=== PATIENT | female | born 1980 | race Two or more races ===

== ENCOUNTER → 2025-05-05 | Emergency (ER) | payer OTHER ==
[~2025-05-05] VITALS: Ht 160 cm; Wt 95.6 kg
[2025-05-05 15:58] VITALS: BP 107/75; PULSE 101; RESP 16; TEMP 97.5; O2SAT 97
== END | disposition left against medical advice (07) ==
LOC: ER 16:02
DX: Z46.6 Encounter for fitting and adjustment of urinary device (principal); Z53.21 Procedure and treatment not carried out due to patient leaving prior to being seen by health care provider